=== PATIENT | female | born 1965 | race Caucasian/White ===

== ENCOUNTER 2018-03-29 09:15 | Inpatient (IN) | payer OTHER ==
[2018-03-23 13:12] VITALS: BMI 29.2
[2018-03-29] MEDS ORDERED: CELECOXIB 200 MG CAPSULE PO ONE (10:40)
[2018-03-29] MEDS ORDERED: oxyCODONE HCL 10 MG SUSTAINED ACTING TABLET PO ONE (10:40)
[2018-03-29] MEDS ORDERED: VANCOMYCIN 1,000 MG in DEXTROSE 5%-WATER - 250 ML IVPB ONE (10:40)
[2018-03-29] MEDS ORDERED: CEFAZOLIN 2 GM in DEXTROSE 5%-WATER - 50 ML IVPB ONE (10:40)
[2018-03-29] MEDS ORDERED: TRANEXAMIC ACID 1000 MG/10 ML VIAL IVPUSH ONE (10:40)
[2018-03-29] MEDS ORDERED: MIDAZOLAM HCL 2 MG/2 ML SINGLE DOSE VIAL ONE ×3 (11:25→14:12)
[2018-03-29] MEDS ORDERED: DEXAMETHASONE SOD PHOSPHATE/PF 10 MG/ML SDV ONE (11:25)
[2018-03-29] MEDS ORDERED: LIDOCAINE HCL/PF 2% SDV 5ML VIAL ONE (11:32)
[2018-03-29] MEDS ORDERED: SODIUM CHLORIDE 0.9% P/F 10 ML VIAL IJ ONE (11:33)
[2018-03-29] MEDS ORDERED: PROPOFOL 20 ML ONE ×2 (14:10)
[2018-03-29] MEDS ORDERED: VANCOMYCIN 1,000 MG VIAL (RESTRICTED TO ID ONLY) ONE (14:27)
[2018-03-29] MEDS ORDERED: ceFAZolin SODIUM 1 GM VIAL ONE ×2 (14:27→16:04)
[2018-03-29] MEDS ORDERED: ONDANSETRON 4 MG/2 ML VIAL ONE (14:27)
[2018-03-29] MEDS ORDERED: DEXAMETHASONE SOD PHOSPHATE 4 MG/1 ML VIAL ONE (14:27)
[2018-03-29] MEDS ORDERED: TRANEXAMIC ACID 1000 MG/10 ML VIAL ONE (14:31)
[2018-03-29] MEDS ORDERED: ONDANSETRON 4 MG/2 ML VIAL IVPUSH PRN ×2 (16:35→17:19)
--- NOTE | 2018-03-29 17:15 | OP ---
Operative Note - Note: Operative Date: 03/29/18 Pre-Operative Diagnosis: Left hip dysplasia Operation: Left total hip replacement Implants: Pauline. Cup - Tritanium, 56mm, multi-hole; 2 x acetabular screws. Poly - 28mm, neutral. Stem - Secure Fit Advanced, #7, 127 degree NSA (high offset). Head - 28mm, +4mm, Biolox Delta Ceramic Surgeon: Shyam Hayden Basting Puller: Ivan Hayden Anesthesiologist/MAINTENANCE OF WAY FOREMAN: Rizwan Collins Anesthesia: Spinal Specimens Removed: Left femoral head Estimated Blood Loss (mls): 300 Drains & Tubes with Location: 1 x deep HemoVac Fluid Volume Replaced (mls): 1,000 Operative Report Dictated: Yes
[2018-03-29] MEDS ORDERED: MAG HYDROX/AL HYDROX/SIMETH 30 ML UNIT-DOSE CUP PO PRN (17:19)
[2018-03-29] MEDS ORDERED: MAGNESIUM HYDROX 2400MG/30ML ORAL SUSPENSION 30 ML CUP PO PRN (17:19)
--- NOTE | 2018-03-29 17:19 | PN ---
Progress Note (short form) - Note Progress Note: 52F s/p L ALVERTO POD #0. -Pain control. -DVT PPx: -Chemical: ASA 81mg PO BID x 6 weeks. -Mechanical: JAC's, SCD's. -Incentive spirometry. -PT/OT/Rehab, OOB. -WBAT LLE. -Posterior L hip precautions. -f/u drain output. -f/u AM labs. -f/u post-op TOV. -Hip abduction pillow. -Care per medical hospitalist team. -Discharge planning: f/u [facility] [place] office 04/06/2018. Call for appointment: . -Will follow. Shyam Hayden MD (Orthopaedic Surgery).
[2018-03-29] MEDS ORDERED: oxyCODONE HCL 5 MG TABLET PO PRN (17:26)
[2018-03-29] MEDS ORDERED: LACTATED RINGERS SOLUTION 1,000 ML IV SCH (17:30)
[2018-03-29] MEDS ORDERED: PROMETHAZINE HCL 25 MG/1 ML VIAL IVPB PRN (17:30)
[2018-03-29] MEDS: ACETAMINOPHEN 325 MG TABLET (FP) PO SCH ×2 (17:57→23:42)
--- NOTE | 2018-03-29 20:28 | OP ---
DATE OF OPERATION: 03/29/2018 SURGEON: Shyam Hayden MD PROSTHETIC AIDES TEACHER: Ivan Hayden MD; ERNIE Morrell PREOPERATIVE DIAGNOSIS: Osteoarthritis, left hip, with Araceli 4 congenital dislocated hip dysplasia. POSTOPERATIVE DIAGNOSIS: Osteoarthritis, left hip, with Araceli 4 congenital dislocated hip dysplasia. OPERATION PERFORMED: 1. Left cementless total hip arthroplasty (Pauline). 2. Acetabuloplasty. 3. Complex wound closure, 25 cm. ANESTHESIA: General. ANTIBIOTICS GIVEN: Kefzol 2 g, vancomycin 1 g, Kefzol 1 g given at the time of seating the femoral component. BLOOD LOSS: Approximately 250 mL. Preoperative shortening of the limb was approximately 1-1/2 inches. With the patient in the supine position, the left lower extremity was prepped, free draped in the routine manner with Betadine scrub solution, wiped off with alcohol, DuraPrep applied. The knee itself had a range of movement from 0 to 45 degrees only. A timeout was called. X-rays were available for intraoperative evaluation, revealing the false acetabulum, the true acetabulum, and the hip dysplasia, and severe reactive bone formation from the osteoarthritis. Via lateral incision centered over the greater trochanter, the fascia was opened, the Charnley retractor was placed subfascially. Using an anterior bias, direct lateral approach, the anterior sliver of fibers of the hip abductor were opened. This gave easy access to the capsule. A superolateral inferomedial incision was made into the capsule and the capsule lifted anteriorly. The hip was abducted, externally rotated, and dislocated with no difficulty, and this because of the flimsy anterior column and markedly distorted and destroyed femoral head encountered. The femoral neck cut was made just at the level of the lesser trochanter in accordance with the principles of Charnley. The false acetabulum and true acetabulum was identified. The pulvinar of the true acetabulum was resected. The inferior retractor was placed in obturator foramen. The anterior retractor and posterior retractors gave excellent exposure of the entire double acetabular arrangement. We started with a very small 36 mm reamer, opening up the original pilot point acetabulum. This was expanded to a point where the reaming was to a size 55, and a size 56 mm Tritanium multihole Pauline cup inserted for a 28 mm neutral liner. Two bone screws were utilized to enhance fixation, although good press-fit fixation between the remaining columns was achieved. The cup was proximalized by about 2 to 3 mm, no more than this. There was slight superolateral defect between the bone bed and the cup but there was more than 66% host bone to cup adherence point. Solid press-fit fixation as 2-screw fixation, we enjoyed excellent positioning of the cup. This was about 5 degrees anteverted and closed. The 28-mm liner was inserted. Once this had been performed, the hip was abducted, externally rotated. The dysplasia of the femoral neck was approximately 70 degrees anteversion. As a result of this, we made our femoral cut at the level of the lesser trochanter. This gave easier access to the introitus of the acetabulum. The hip abductors were held out of harm's way with a Hohmann, broaching and reaming with a canal finder, and then broaching for a size 7 stem was utilized. This was seated, broached, and trialed, with a 0 head. This gave about from 1-1/2 inches of shortening to approximately 1.5 centimeters of shortening. Once this had been achieved, the appropriate Secur-Fit 7 femoral component inserted. This was a ceramic 28 +4 head. The articulation was beautiful and well maintained, full range of movement on the table, with no dislocatability, and clearance of the posterior trunnion with the posterior aspect of the cup noted on extension and external rotation. Once this had been performed, the wounds were thoroughly lavaged. The leg length was about 1 cm short. With that, the tradeoffs were to seat a bigger cup and bring it down to the level of the teardrop but this would broach and breach the quadrilateral plane, and we elected to accept the good position we had. The closure was as follows: Hip abductor fascia: 1 Vicryl; fascia: 1 Vicryl; subcutaneous: 1 and 2-0 Vicryl; skin: 3-0 Monocryl with Steri-Strips. Drainage: A 1/8-inch Hemovac drain x1. Extremely difficult case. Operation went well. Complex wound closure utilized to close this unusual wound. This measured to 25 cm. For partial weightbearing for 6 weeks. MD YENI Ramesh/[id number]
[2018-03-29] MEDS: SENNOSIDES/DOCUSATE COMBO (SENNA PLUS) TABLET (UD) PO SCH (21:44)
[2018-03-29] MEDS: ASPIRIN COATED 81 MG TABLET.EC PO SCH (21:44)
[2018-03-29] MEDS: oxyCODONE HCL 10 MG SUSTAINED ACTING TABLET PO SCH (21:46)
[2018-03-29] MEDS: CEFAZOLIN 1 GM/D5W 1 GM/50 ML BAG IVPB SCH (23:42)
[2018-03-30] MEDS ORDERED: VANCOMYCIN 1,000 MG in DEXTROSE 5%-WATER - 250 ML IVPB ONE (02:00)
[2018-03-30] MEDS ORDERED: VANCOMYCIN 1 GRAM (PRE-DOCKED) 1,000 MG/250 ML BAG IVPB ONE (02:00)
[2018-03-30] MEDS: ACETAMINOPHEN 325 MG TABLET (FP) PO SCH ×3 (05:17→17:12)
[2018-03-30] MEDS: oxyCODONE HCL 5 MG TABLET PO PRN ×4 (05:20→19:41)
[2018-03-30] MEDS: CEFAZOLIN 1 GM/D5W 1 GM/50 ML BAG IVPB SCH (07:27)
[2018-03-30 08:22] LABS: HEMATOCRIT 32.7 % (32.4-45.2); HEMOGLOBIN 11.2 GM/dl (10.7-15.3); MCH 29.5 pg (25.7-33.7); MCHC 34.1 g/dl (32.0-36.0); MEAN CELL VOLUME 86.5 fl (80-96); MEAN PLT VOLUME 9.5 fl (7.5-11.1); PLATELET COUNT 193 K/MM3 (134-434); RBC 3.78 M/mm3 (3.60-5.2); RDW 11.7 % (11.6-15.6); WHITE BLOOD COUNT 12.1 K/mm3 (4.0-10.8)
[2018-03-30 08:31] LABS: ANION GAP 6 (8-16); BLOOD UREA NITROGEN 10 mg/dl (7-18); CHLORIDE 102 mmol/L (98-107); CO2 26 mmol/L (22-28); GLUCOSE,RANDOM 163 mg/dl (74-106); POTASSIUM 4.2 mmol/L (3.5-5.1); SODIUM 134 mmol/L (136-145)
[2018-03-30 09:03] LABS: CREATININE < 0.8 mg/dl (0.6-1.3)
[2018-03-30] MEDS: ASPIRIN COATED 81 MG TABLET.EC PO SCH ×2 (09:26→21:31)
[2018-03-30] MEDS: SENNOSIDES/DOCUSATE COMBO (SENNA PLUS) TABLET (UD) PO SCH ×2 (09:26→21:31)
[2018-03-30] MEDS: oxyCODONE HCL 10 MG SUSTAINED ACTING TABLET PO SCH ×2 (09:27→21:30)
[2018-03-30] MEDS: PANTOPRAZOLE 40 MG TABLET (FP) PO SCH (09:27)
--- NOTE | 2018-03-30 10:57 | PN ---
Progress Note, Physician Chief Complaint: s/p left hip hemiarthoplasty post op day one. History of Present Illness: paravertebral block for post op pain control - Current Medication List Current Medications: Active Medications Acetaminophen (Tylenol -) 650 mg PO Q6H [facility] Stop: 04/01/18 17:29 Last Admin: 03/30/18 05:17 Dose: 650 mg Al Hydroxide/Mg Hydroxide (Mylanta Oral Suspension -) 30 ml PO Q4H PRN PRN Reason: DYSPEPSIA Aspirin (Ecotrin -) 81 mg PO BID [facility] Last Admin: 03/30/18 09:26 Dose: 81 mg Ferrous Sulfate (Feosol -) 325 mg PO DAILY [facility] Lactated Ringer's (Lactated Ringers Solution) 1,000 mls @ 75 mls/hr IV ASDIR [facility] Magnesium Hydroxide (Milk Of Magnesia -) 30 ml PO DAILY PRN PRN Reason: CONSTIPATION Ondansetron HCl (Zofran Injection) 4 mg IVPUSH Q6H PRN PRN Reason: NAUSEA Oxycodone HCl (Roxicodone -) 5 mg PO Q3H PRN PRN Reason: PAIN LEVEL 1-5 Oxycodone HCl (Roxicodone -) 10 mg PO Q3H PRN PRN Reason: PAIN LEVEL 6-10 Last Admin: 03/30/18 09:27 Dose: 10 mg Oxycodone HCl (Oxycontin -) 10 mg PO BID [facility] Stop: 04/01/18 17:26 Last Admin: 03/30/18 09:27 Dose: 10 mg Pantoprazole Sodium (Protonix -) 40 mg PO DAILY [facility] Last Admin: 03/30/18 09:27 Dose: 40 mg Promethazine HCl (Phenergan Injection -) 6.25 mg IVPB Q6H PRN PRN Reason: NAUSEA AND/OR VOMITING Senna/Docusate Sodium (Pericolace -) 1 tablet PO BID [facility] Last Admin: 03/30/18 09:26 Dose: 1 tablet Sertraline HCl (Zoloft -) 100 mg PO DAILY [facility] - Objective Vital Signs: Vital Signs Temperature 98.4 F 03/30/18 06:00 Pulse Rate 83 03/30/18 06:00 Respiratory Rate 18 03/30/18 08:22 Blood Pressure 124/65 03/30/18 06:00 O2 Sat by Pulse Oximetry (%) 97 03/30/18 08:22 Constitutional: Yes: Well Nourished Cardiovascular: Yes: WNL Respiratory: Yes: WNL Gastrointestinal: Yes: WNL Labs: CBC, BMP 03/30/18 07:35 03/30/18 07:35 Assessment/Plan Patient doing well, pain controlled, no nausea or vomiting, complaining of depression did not receive her antidepressants yesterday. Will instruct nurse to give medication as prescribed. Otherwise dept of anesthesia will sign off care at this time
[2018-03-30] MEDS: FERROUS SO4 325 MG TABLET (FP) PO SCH (12:03)
[2018-03-30] MEDS: SERTRALINE HCL 50 MG TABLET (FP) PO SCH (12:03)
--- NOTE | 2018-03-30 13:23 | CONSULT ---
Consultation: REQUESTING PROVIDER: Dr Hayden CONSULT REQUEST: We have been asked to medically evaluate this patient for medical management. HISTORY OF PRESENT ILLNESS: patient is a 52-year-old female, with a past medical history of depression, iron deficiency anemia, and osteoarthritis. Patient is S/P left total hip replacement post operative day 1, spinal anesthesia. REVIEW OF SYSTEMS: CONSTITUTIONAL: Absent: fever, chills, diaphoresis, generalized weakness, malaise, loss of appetite, weight change HEENT: Absent: rhinorrhea, nasal congestion, throat pain, throat swelling, difficulty swallowing, mouth swelling, ear pain, eye pain, visual changes CARDIOVASCULAR: Absent: chest pain, syncope, palpitations, irregular heart rate, lightheadedness , peripheral edema RESPIRATORY: Absent: cough, shortness of breath, dyspnea with exertion, orthopnea, wheezing, stridor, hemoptysis GASTROINTESTINAL: Absent: abdominal pain, abdominal distension, nausea, vomiting, diarrhea, constipation, melena, hematochezia GENITOURINARY: Absent: dysuria, frequency, urgency, hesitancy, hematuria, flank pain, genital pain MUSCULOSKELETAL: Absent: myalgia, arthralgia, joint swelling, back pain, neck pain Present: pain upon range of motion to the left lateral hip, patient denies any paresthesia to the extremity. SKIN: Absent: rash, itching, pallor HEMATOLOGIC/IMMUNOLOGIC: Absent: easy bleeding, easy bruising, lymphadenopathy, frequent infections ENDOCRINE: Absent: unexplained weight gain, unexplained weight loss, heat intolerance, cold intolerance NEUROLOGIC: Absent: headache, focal weakness or paresthesias, dizziness, unsteady gait, seizure, mental status changes, bladder or bowel incontinence PSYCHIATRIC: Absent: anxiety, depression, suicidal or homicidal ideation, hallucinations. PHYSICAL EXAMINATION Vital Signs - 24 hr 03/29/18 03/29/18 03/29/18 17:16 17:20 17:25 Temperature 97.9 F 97.9 F 97.9 F Pulse Rate 84 66 66 Respiratory 13 13 13 Rate Blood Pressure 106/67 103/65 104/71 O2 Sat by Pulse 100 100 100 Oximetry (%) 03/29/18 03/29/18 03/29/18 17:30 17:45 18:00 Temperature 97.9 F 97.9 F 97.9 F Pulse Rate 66 65 76 Respiratory 12 15 16 Rate Blood Pressure 111/68 106/65 109/65 O2 Sat by Pulse 100 100 100 Oximetry (%) 03/29/18 03/29/18 03/29/18 18:15 18:30 18:45 Temperature 97.9 F 97.9 F 97.9 F Pulse Rate 70 72 67 Respiratory 15 16 12 Rate Blood Pressure 100/82 102/58 110/70 O2 Sat by Pulse 100 100 Oximetry (%) 03/29/18 03/29/18 03/30/18 20:30 22:00 06:00 Temperature 98.1 F 98.4 F Pulse Rate 80 83 Respiratory 12 16 18 Rate Blood Pressure 100/71 124/65 O2 Sat by Pulse 100 100 97 Oximetry (%) 03/30/18 08:22 Temperature Pulse Rate Respiratory 18 Rate Blood Pressure O2 Sat by Pulse 97 Oximetry (%) GENERAL: Awake, alert, and fully oriented, in no acute distress. HEAD: Normal with no signs of trauma. EYES: Pupils equal, round and reactive to light, extraocular movements intact, sclera anicteric, conjunctiva clear. No lid lag. EARS, NOSE, THROAT: Ears normal, nares patent, oropharynx clear without exudates. Moist mucous membranes. NECK: Normal range of motion, supple without lymphadenopathy, JVD, or masses. LUNGS: Breath sounds equal, clear to auscultation bilaterally. No wheezes, and no crackles. No accessory muscle use. HEART: Regular rate and rhythm, normal S1 and S2 without murmur, rub or gallop. ABDOMEN: Soft, nontender, not distended, normoactive bowel sounds, no guarding, no rebound, no masses. No hepatomegaly or splenomegaly. MUSCULOSKELETAL: Normal range of motion at all joints. No bony deformities or tenderness. No CVA tenderness. UPPER EXTREMITIES: 2+ pulses, warm, well-perfused. No cyanosis. No clubbing. Cap refill <2 seconds. No peripheral edema. LOWER EXTREMITIES: 2+ pulses, warm, well-perfused. No calf tenderness. No peripheral edema. LEFT LOWER EXTREMITY: dressing CDI, Hemovac drain scant sanguinous drainage. Less than 3 second capillary refill plus for pedal pulse SCDs/Joao NEUROLOGICAL: Cranial nerves II-XII intact. Normal speech. Normal gait. PSYCHIATRIC: Cooperative. Good eye contact. Appropriate mood and affect. SKIN: Warm, dry, normal turgor, no rashes or lesions noted. Laboratory Results - last 24 hr 05/31/18 05/31/18 07:35 07:35 WBC 12.1 H RBC 3.78 Hgb 11.2 Hct 32.7 MCV 86.5 MCH 29.5 MCHC 34.1 RDW 11.7 Plt Count 193 MPV 9.5 Sodium 134 L Potassium 4.2 Chloride 102 Carbon Dioxide 26 Anion Gap 6 L BUN 10 Creatinine < 0.8 Random Glucose 163 H Calcium 9.0 Active Medications Generic Name Dose Route Start Last Admin Trade Name Freq PRN Reason Stop Dose Admin Acetaminophen 650 mg 03/29/18 17:30 03/30/18 12:04 Tylenol - PO 04/01/18 17:29 650 mg Q6H FELECIA Administration Al Hydroxide/Mg Hydroxide 30 ml 03/29/18 17:19 Mylanta Oral Suspension - PO Q4H PRN DYSPEPSIA Aspirin 81 mg 03/29/18 22:00 03/30/18 09:26 Ecotrin - PO 81 mg BID FELECIA Administration Ferrous Sulfate 325 mg 03/30/18 11:00 03/30/18 12:03 Feosol - PO 325 mg DAILY FELECIA Administration Lactated Ringer's 1,000 mls @ 75 mls/hr 03/29/18 16:45 Lactated Ringers Solution IV ASDIR FELECIA Magnesium Hydroxide 30 ml 03/29/18 17:19 Milk Of Magnesia - PO DAILY PRN CONSTIPATION Ondansetron HCl 4 mg 03/29/18 17:19 Zofran Injection IVPUSH Q6H PRN NAUSEA Oxycodone HCl 5 mg 03/29/18 17:26 Roxicodone - PO Q3H PRN PAIN LEVEL 1-5 Oxycodone HCl 10 mg 03/29/18 17:26 03/30/18 09:27 Roxicodone - PO 10 mg Q3H PRN Administration PAIN LEVEL 6-10 Oxycodone HCl 10 mg 03/29/18 22:00 03/30/18 09:27 Oxycontin - PO 04/01/18 17:26 10 mg BID FELECIA Administration Pantoprazole Sodium 40 mg 03/30/18 10:00 03/30/18 09:27 Protonix - PO 40 mg DAILY FELECIA Administration Promethazine HCl 6.25 mg 03/29/18 17:30 Phenergan Injection - IVPB Q6H PRN NAUSEA AND/OR VOMITING Senna/Docusate Sodium 1 tablet 03/29/18 22:00 03/30/18 09:26 Pericolace - PO 1 tablet BID FELECIA Administration Sertraline HCl 100 mg 03/30/18 11:00 03/30/18 12:03 Zoloft - PO 100 mg DAILY FELECIA Administration ASSESSMENT/PLAN: 1) MS S/P left total hip replacement - When necessary pain medication - Physical therapy as per the orthopedist - monitor hemoglobin, restart iron supplements 2) psych depression - continue Zoloft 3) heme iron deficency anemia - hemoglobin this a.m. of 11.2, continue iron supplements strict monitoring of hemoglobin and intake and output Dispo: We will continue to follow the patient. Thank you for this consultative opportunity. Visit type - Emergency Visit Emergency Visit: No - New Patient This patient is new to me today: Yes Date on this admission: 03/30/18 - Critical Care Critical Care patient: No
--- NOTE | 2018-03-30 13:37 | PN ---
Progress Note (short form) - Note Progress Note: 52yo F s/p Lt hip arthroplasty POD 1. Pt seen sitting at bedside. Pt states mild Lt hip pain but well controlled. Pt denies fever, chills, n/v. Pt tolerated AM PT well. Urinating and tolerating PO. Last Vital Signs Temp Pulse Resp BP Pulse Ox 98.4 F 83 18 124/65 97 03/30/18 06:00 03/30/18 06:00 03/30/18 08:22 03/30/18 06:00 03/30/18 08:22 CBC, BMP 03/30/18 07:35 03/30/18 07:35 PE: Gen: A&Ox3 Resp: breathing comfortably Ext: Left hip dressing in place clean with no erythema or discharge. Drain in place with serosanguinous drainage. Problem List - Problems (1) Osteoarthritis of left hip Assessment/Plan: Plan: Continue PT as directed DVT ppx Pain control Will consider pulling drain and discharge tomorrow. Pt discussed with Dr. Ivan Hayden who agrees with plan Code(s): M16.12 - UNILATERAL PRIMARY OSTEOARTHRITIS, LEFT HIP
[2018-03-31] MEDS: ACETAMINOPHEN 325 MG TABLET (FP) PO SCH ×3 (04:48→11:19)
[2018-03-31] MEDS: oxyCODONE HCL 5 MG TABLET PO PRN ×2 (04:49→13:12)
[2018-03-31] MEDS: LACTATED RINGERS SOLUTION 1,000 ML IV SCH ×2 (06:55→06:57)
[2018-03-31 09:24] VITALS: BP 120/60; PULSE 96; TEMP 98.1
[2018-03-31] MEDS: SERTRALINE HCL 50 MG TABLET (FP) PO SCH (09:24)
[2018-03-31] MEDS: ASPIRIN COATED 81 MG TABLET.EC PO SCH (09:24)
[2018-03-31] MEDS: oxyCODONE HCL 10 MG SUSTAINED ACTING TABLET PO SCH (09:24)
[2018-03-31] MEDS: PANTOPRAZOLE 40 MG TABLET (FP) PO SCH (09:24)
[2018-03-31] MEDS: SENNOSIDES/DOCUSATE COMBO (SENNA PLUS) TABLET (UD) PO SCH (09:24)
[2018-03-31] MEDS: FERROUS SO4 325 MG TABLET (FP) PO SCH (09:24)
[2018-03-31 10:28] LABS: HEMOGLOBIN 10.1 GM/dl (10.7-15.3); MCH 29.3 pg (25.7-33.7); MCHC 33.6 g/dl (32.0-36.0); MEAN CELL VOLUME 87.3 fl (80-96); MEAN PLT VOLUME 9.7 fl (7.5-11.1); PLATELET COUNT 153 K/MM3 (134-434); RBC 3.44 M/mm3 (3.60-5.2); RDW 11.8 % (11.6-15.6); WHITE BLOOD COUNT 9.5 K/mm3 (4.0-10.8)
--- NOTE | 2018-03-31 13:26 | DS ---
"Physical Exam: SUBJECTIVE: Patient seen and examined OBJECTIVE: Vital Signs Period Temp Pulse Resp BP Sys/Sinha Pulse Ox Last 24 Hr 98.1 F-98.9 F 74-96 18-18 110-120/60-71 98-100 PHYSICAL EXAM GENERAL: The patient is awake, alert, and fully oriented, in no acute distress. HEAD: Normal with no signs of trauma. EYES: PERRL, extraocular movements intact, sclera anicteric, conjunctiva clear. ENT: Ears normal, nares patent, oropharynx clear without exudates, moist mucous membranes. NECK: Trachea midline, full range of motion, supple. LUNGS: Breath sounds equal, clear to auscultation bilaterally, no wheezes, no crackles, no accessory muscle use. HEART: Regular rate and rhythm, S1, S2 without murmur, rub or gallop. ABDOMEN: Soft, nontender, nondistended, normoactive bowel sounds, no guarding, no rebound, no hepatosplenomegaly, no masses. EXTREMITIES: 2+ pulses, warm, well-perfused, no edema. NEUROLOGICAL: Cranial nerves II through XII grossly intact. Normal speech, gait not observed. PSYCH: Normal mood, normal affect. SKIN: Warm, dry, normal turgor, no rashes or lesions noted. LABS Laboratory Results - last 24 hr 03/31/18 08:40 WBC 9.5 RBC 3.44 L Hgb 10.1 L Hct 30.0 L MCV 87.3 MCH 29.3 MCHC 33.6 RDW 11.8 Plt Count 153 MPV 9.7 HOSPITAL COURSE: Date of Admission:03/29/18 Date of Discharge: 03/31/18 Discharge Summary Reason For Visit: UNILATERAL OA RESULTING FROM HIP DYSPLASIA Current Active Problems Osteoarthritis of left hip (Acute) Condition: Stable - Instructions Diet, Activity, Other Instructions: This report was requested by: Naima Mcgee | Reference #: [id number] Post-op instructions: Keep the dressing on until removed by Dr. Hayden next week. No baths. You have a follow up appointment on 04/06, Call the to verify your appointment time [phone] Take one Aspirin 81mg every 12 hours for the next 6 weeks to prevent blood clots in your legs. Referrals: Ivan Hayden MD [Staff Physician] - Disposition: HOME - Home Medications Comprehensive Discharge Medication List: Ambulatory Orders Cholecalciferol (Vitamin D3) [Vitamin D3] 2,000 unit PO DAILY 03/23/18 Cyanocobalamin (Vitamin B-12) [Vitamin B12] 2,500 mcg PO DAILY 03/23/18 Ferrous Sulfate 325 mg PO DAILY 03/23/18 [place]-3S/Dha/Epa/Fish Oil [Fish Oil 1,200 mg Softgel] 1 each PO DAILY 03/23/18 Sertraline HCl [Zoloft] 100 mg PO DAILY 03/23/18 Vitamin E 400 unit PO DAILY 03/23/18 Aspirin [ASA -] 81 mg PO BID #90 tab.chew 03/31/18"
--- NOTE | 2018-03-31 17:22 | PATH ---
Surgical Pathology Report Patient Name: NAOMIE DEGROOT Med. Rec. #: [id number] /Age/Gender: 1965 (Age: 52) / F Account: [id number] Location: [facility] MED-SURG Taken: 03/29/2018 Received: 03/30/2018 Reported: 03/31/2018 Physicians: Shyam Hayden M.D. Specimen(s) Received LEFT FEMORAL HEAD Clinical History Osteoarthritis left hip secondary to left hip dysplasia Final Diagnosis BONE, FEMORAL HEAD, LEFT, TOTAL HIP REPLACEMENT: BONE WITH DEGENERATIVE JOINT DISEASE. Electronically Signed Nimco Marin M.D. Gross Description Received in formalin, labeled "left femoral head," is a 4.8 x 4.3 x 3.5 cm. deformed appearing femoral head with a 2 cm in length portion of femoral neck attached. There is an additional 3.5 x 2.2 x 2.0 cm portion of femoral neck separately received within the same container. The margin of resection is smooth. The articular cartilage is focally lifting away from the underlying bone. The articular surface is krishnan and focally granular. The underlying trabecular bone is yellow and hard. A utility sales representative sections are submitted in one cassette, following decalcification. /03/30/201803/30/2018
== END 2018-03-31 15:25 | disposition home health service (06) | DRG 301 ==
LOC: FM/S 09:15
PROVIDERS: ADMIT Orthopaedic Surgery Orthopaedic Surgery of the Spine; ATTEND Orthopaedic Surgery Orthopaedic Surgery of the Spine
PROC: 0QR Lower Bones, Replacement (ICD-10-PCS; 2018-03-29)
PROC: 0KQP0ZZ Repair Left Hip Muscle, Open Approach (ICD-10-PCS; 2018-03-29)
PROC: 0SRB0JA Replacement of Left Hip Joint with Synthetic Substitute, Uncemented, Open Approach (ICD-10-PCS; principal; 2018-03-29 15:08)
DX: M16.12 Unilateral primary osteoarthritis, left hip (principal); Q65.02 Congenital dislocation of left hip, unilateral; Q65.89 Other specified congenital deformities of hip
CPT/HCPCS: 36415; 73502-TC-LT-FY; 80048; 84703; 85027; 88304-TC; 88311-TC; 94760; 97116-GP; 97162-GP